=== PATIENT | female | born 1955 | race Hispanic/Latino ===

== ENCOUNTER 2017-10-23 07:10 | Day surgery (SDC) | payer OTHER ==
[~2017-10-23 07:10] MED LIST: TETRACAINE 0.5% OD PRN
--- NOTE | 2017-10-23 08:47 | Anesthesia Consultation ---
Anesthesia Consult and Med Hx Date of service: 10/23/17 - Airway Anesthetic Teeth Evaluation: Dentures ROM Head & Neck: Adequate Mental/Hyoid Distance: Adequate Mallampati Class: Class II Intubation Access Assessment: Probably Good - Pulmonary Exam CTA: Yes - Cardiac Exam Cardiac Exam: RRR - Pre-Operative Health Status ASA Pre-Surgery Classification: ASA2 Proposed Anesthetic Plan: MAC - Central Nervous System Hx Psychiatric Problems: Yes - Endocrine Hx Hyperthyroidism: Yes (GRAVES DISEASE) - Other Systems Hx Alcohol Use: No Hx Substance Use: No Hx Cancer: No Hx Obesity: Yes
--- NOTE | 2017-10-23 08:47 | Anesthesia Day of Surgery ---
Anesthesia Day of Surgery - Day of Surgery Patient Examined: Yes Patient H&P Reviewed: Yes Patient is NPO: Yes
[2017-10-23] MEDS: AK-Dilate OD SCH ×3 (09:00→09:10)
[2017-10-23] MEDS: VIGAMOX OD SCH ×3 (09:00→09:10)
[2017-10-23] MEDS: MYDRIACYL OD SCH ×3 (09:00→09:10)
[2017-10-23] MEDS ORDERED: TYLENOL PO NR (09:34)
[2017-10-23] MEDS ORDERED: VERSED ONE (10:45)
[2017-10-23] MEDS ORDERED: SUBLIMAZE ONE (10:45)
[2017-10-23] MEDS ORDERED: NACL 0.9% 1000 ML 1,000 ML ONE (11:03)
[2017-10-23] MEDS ORDERED: ROBINUL ONE (11:03)
--- NOTE | 2017-10-23 11:08 | Operative Report ---
Operative Report Operative Report: PATIENT'S NAME: DATE OF : DATE OF SURGERY: 10/23/2017 PREOPERATIVE DIAGNOSIS: Cataract right eye POSTOPERATIVE DIAGNOSIS: Same OPERATIVE PROCEDURE: Phacoemulsification with intraocular lens implantation, right eye SURGEON: Savannah Zavala M.D. MASTER CHEF SURGEON: Tanesha Lens: AO60 14.0 D ANESTHESIA: Monitored anesthesia care in combination with topical and intracameral anesthesia because of the established specific risk of reflux, arrhythmias, or anxiety attacks associated with ocular manipulation, as well as the difficulty of the welfare adviser to manage such potentially catastrophic events while simultaneously attempting to complete the surgical procedure and was deemed necessary for the patient's safety to have an Ob Gyn Physician Assistant present during the procedure whenever possible. An Ob Gyn Physician Assistant was utilized to regulate the intravenous sedation of the patient so the patient was cooperative yet not asleep in order for the patient to successfully maintain fixation of the eye on the operating light of the microscope. COMPLICATIONS: o surgical complications No blood loss. ALLERGIES: Aspirin penicillin PROGNOSIS: Excellent INDICATIONS FOR SURGERY: The patient is undergoing surgery in the hopes of eliminating or improving these visual difficulties. PROCEDURE: After arriving at the surgery center, the patient was given topical anesthetic and dilating drops, as noted in the record. The patient was then taken into the operating room and given more anesthetic drops. The eyelids , lashes, and lid margins were scrubbed with Betadine solution, and the patient was draped. The Nurse Ob Gyn Physician Assistant administered IV sedation and monitored the patient during the procedure. The eye was then fixated with a 0.12, and a stab incision was made in the peripheral clear cornea into the anterior chamber. This was made on my left side. Viscoelastic was next used to fill the anterior chamber. The eye was once again fixated with the 0.12 forceps and a keratome was used make an incision in clear cornea peripherally on my right hand side temporally. The capsule forceps were used to open the central anterior capsule and then make a continuous round capsulotomy. Hydrodissection was carried out utilizing a cannula and balanced salt solution to delineate the cortical material from the capsule and the nucleus from the cortical material. The phaco tip was introduced into the eye and used to remove the anterior cortical material in the area of the capsulotomy. Then the phaco tip was buried into the nucleus, and a chopping instrument was introduced into the eye and used to provide countertraction in the nucleus between this instrument and the phaco tip fracturing the nucleus. This procedure was repeated multiple times, providing multiple small segments of the lens, and then the phaco tip was used to remove each of these segments. An I/A tip was then used to remove the remaining cortex. The anterior chamber was refilled with viscoelastic. An one-piece, acrylic intraocular lens was then placed into an inserting cartridge. The tip of the inserting cartridge was introduced into the keratome incision and into the anterior chamber. The implant was gently advanced through the cartridge and into the eye, where it unfolded, and both haptics were placed in the capsular bag, where it centered nicely and appeared to be well fixated. After placement of the intraocular lens, the I~and~A handpiece was placed back into the eye and used to remove the viscoelastic, including viscoelastic that was behind the optic of the intraocular lens. The anterior chamber was then filled with balanced salt solution, and hydration of the wound was used to cause swelling of the wound and more appropriate watertight closure. When the wound was found to be firm, the patient was asked to comment on how bright the light was. If there was no light perception at all or if the light was substantially dimmer than during the rest of the surgery, the amount of fluid in the eye was decompressed to lower the intraocular pressure until the patient could see the bright light again. This was done to avoid any damage or decreased blood flow to the optic nerve. MEDICATIONS APPLIED AT END OF SURGERY: One drop of Pred Forte and Vigamox The patient was given a shield to wear at night and was instructed not to rub or push on the eye. DISCHARGE SUMMARY: The patient was released in stable condition. The patient and those with the patient were given a written sheet of postoperative instructions and counseling on any abnormal laboratory studies. The patient is to see us tomorrow for follow-up in the office and is to call immediately for any difficulties. Savannah Zavala M.D. Date
--- NOTE | 2017-10-23 11:09 | Short Stay Summary ---
Short Stay Documentation Date of service: 10/23/17 - History H&P: obtained from office - Allergies and Medications Current Medications: Allergies aspirin Allergy (Verified 10/22/17 14:14) CONTRAINDICATED Penicillins Allergy (Verified 10/22/17 14:14) Unknown A TEENAGER Home Medications Medication Instructions Recorded Confirmed Last Taken Type Cholecalciferol (Vitamin D3) 5,000 unit PO DAILY 10/22/17 10/22/17 10/22/17 History [Vitamin D3] Docusate Sodium [Dok] 100 mg PO DAILY 10/22/17 10/22/17 10/22/17 History Levothyroxine [Synthroid] 125 mcg PO QAM 10/22/17 10/22/17 10/22/17 History [place] Carbonate [Eskalith] 300 mg PO DAILY 10/22/17 10/22/17 10/22/17 History Loratadine 10 mg PO DAILY 10/22/17 10/22/17 10/22/17 History Oxybutynin [Ditropan] 5 mg PO BID 10/22/17 10/22/17 10/22/17 History Pramipexole Di-HCl [Pramipexole 0.125 mg PO QHS 10/22/17 10/22/17 10/22/17 History Dihydrochloride] Propranolol [Inderal] 10 mg PO DAILY 10/22/17 10/22/17 10/22/17 History Ranitidine HCl [Acid Control] 150 mg PO BID 10/22/17 10/22/17 10/22/17 History Trazodone HCl 150 mg PO QHS 10/22/17 10/22/17 10/22/17 History Trifluoperazine HCl 5 mg PO QHS 10/22/17 10/22/17 10/22/17 History Active Medications Acetazolamide (Diamox) 500 mg PO BID ONE Stop: 10/23/17 11:07 Moxifloxacin HCl (Vigamox) 1 drops OD Q5MIN [facility] Stop: 10/25/17 06:01 Last Admin: 10/23/17 09:10 Dose: 1 drops Phenylephrine HCl (Ak-Dilate) 1 drops OD Q5MIN [facility] Stop: 10/25/17 06:01 Last Admin: 10/23/17 09:10 Dose: 1 drops Prednisolone Acetate (Pred Forte 1%) 1 drops OD QID [facility] Tetracaine HCl (Tetracaine 0.5%) 1 drops OD Q5M PRN PRN Reason: Analgesia Last Admin: 10/23/17 09:00 Dose: 1 drops Tropicamide (Mydriacyl) 1 drops OD Q5MIN [facility] Stop: 10/25/17 06:01 Last Admin: 10/23/17 09:10 Dose: 1 drops - Brief post op/procedure progress note Date of procedure: 10/23/17 Pre-op diagnosis: right cataract Post-op diagnosis: same Procedure: Phacoemulsification with intraocular lens insertion right eye Anesthesia: MAC, local Surgeon: GOLD CHAVEZ Estimated blood loss: none Pathology: none Condition: stable - Disposition Condition at discharge: Good - Discharge Diagnoses (1) Cataract Status: Acute Qualifiers: Cataract type: age-related Age-related cataract type: nuclear Laterality : right Qualified Code(s): H25.11 - Age-related nuclear cataract, right eye Short Stay Discharge Plan Follow up with: LINA GARZA MD [Primary Care Provider] - 7 Days
[2017-10-23] MEDS ORDERED: PRED FORTE 1% OD SCH (11:30)
[2017-10-23] MEDS ORDERED: DIAMOX PO ONE (12:00)
[2017-10-23 12:20] VITALS: BP 107/67
== END 2017-10-23 07:11 | disposition home or self-care (01) ==
LOC: OR 07:10
DX: H26.9 Unspecified cataract (principal); E05.00 Thyrotoxicosis with diffuse goiter without thyrotoxic crisis or storm; E66.9 Obesity, unspecified; F41.9 Anxiety disorder, unspecified; Z88.0 Allergy status to penicillin; Z88.6 Allergy status to analgesic agent
CPT/HCPCS: 66984; J2250; J3010; J7030; V2632

== ENCOUNTER 2021-03-19 21:36 | Inpatient (IN) | payer MEDICARE, OTHER ==
--- NOTE | 2021-03-19 22:53 | Emergency Department Report ---
ED Psych HPI - General Stated Complaint: MH EVAL Time Seen by Provider: 03/19/21 22:35 Source: EMS - History of Present Illness Initial Comments: Patient is 65-year-old female, unknown past medical history. Patient brought to the emergency room via EMS for mental health evaluation and altered mental status. EMS stated that patient was found naked in the street. Upon arrival to the ER patient is calm however she refused to talk initially and then started to answer some questions. Patient is disoriented in place, however she knows that this is March. Patient is able to give her Social Security number and her current address but she stated that she does not have a phone number. She stated that her daughter name is Pauline and her son is Zack. Patient denied any suicidal or homicidal ideation. MD Complaint: altered mental status -: unknown Associated Psychiatric Symptoms: racing thoughts, delusions Quality: constant Associated Symptoms: confusion - Related Data Home Medications Medication Instructions Recorded Confirmed Last Taken Cholecalciferol (Vitamin D3) 5,000 unit PO DAILY 10/22/17 10/22/17 10/22/17 [Vitamin D3] Docusate Sodium [Dok] 100 mg PO DAILY 10/22/17 10/22/17 10/22/17 Levothyroxine [Synthroid] 125 mcg PO QAM 10/22/17 10/22/17 10/22/17 [place] Carbonate [Eskalith] 300 mg PO DAILY 10/22/17 10/22/17 10/22/17 Loratadine 10 mg PO DAILY 10/22/17 10/22/17 10/22/17 Oxybutynin [Ditropan] 5 mg PO BID 10/22/17 10/22/17 10/22/17 Pramipexole Di-HCl [Pramipexole 0.125 mg PO QHS 10/22/17 10/22/17 10/22/17 Dihydrochloride] Trazodone HCl 150 mg PO QHS 10/22/17 10/22/17 10/22/17 Trifluoperazine HCl 5 mg PO QHS 10/22/17 10/22/17 10/22/17 propranoloL [Inderal] 10 mg PO DAILY 10/22/17 10/22/17 10/22/17 raNITIdine HCl [Acid Control] 150 mg PO BID 10/22/17 10/22/17 10/22/17 Allergies Allergy/AdvReac Type Severity Reaction Status Date / Time aspirin Allergy CONTRAINDIC Verified 10/22/17 14:14 ATED Penicillins Allergy Unknown Verified 10/22/17 14:14 ED Review of Systems ROS: Stated complaint: JOHN FOLEY Other details as noted in HPI Comment: All other systems reviewed and negative Constitutional: denies: chills, fever Respiratory: denies: cough, shortness of breath, SOB with exertion, SOB at rest Cardiovascular: denies: chest pain, palpitations Gastrointestinal: denies: abdominal pain, nausea, vomiting Musculoskeletal: denies: back pain Neurological: confusion. denies: headache, weakness, numbness, paresthesias, abnormal gait ED Past Medical Hx - Past Medical History Hx Arthritis: Yes Hx HIV: No - Social History Smoking Status: Never Smoker - Medications Home Medications: Home Medications Medication Instructions Recorded Confirmed Last Taken Type Cholecalciferol (Vitamin D3) 5,000 unit PO DAILY 10/22/17 10/22/17 10/22/17 History [Vitamin D3] Docusate Sodium [Dok] 100 mg PO DAILY 10/22/17 10/22/17 10/22/17 History Levothyroxine [Synthroid] 125 mcg PO QAM 10/22/17 10/22/17 10/22/17 History [place] Carbonate [Eskalith] 300 mg PO DAILY 10/22/17 10/22/17 10/22/17 History Loratadine 10 mg PO DAILY 10/22/17 10/22/17 10/22/17 History Oxybutynin [Ditropan] 5 mg PO BID 10/22/17 10/22/17 10/22/17 History Pramipexole Di-HCl [Pramipexole 0.125 mg PO QHS 10/22/17 10/22/17 10/22/17 History Dihydrochloride] Trazodone HCl 150 mg PO QHS 10/22/17 10/22/17 10/22/17 History Trifluoperazine HCl 5 mg PO QHS 10/22/17 10/22/17 10/22/17 History propranoloL [Inderal] 10 mg PO DAILY 10/22/17 10/22/17 10/22/17 History raNITIdine HCl [Acid Control] 150 mg PO BID 10/22/17 10/22/17 10/22/17 History ED Physical Exam - General General appearance: alert, in no apparent distress - Head Head exam: Present: atraumatic, normocephalic, normal inspection - Eye Eye exam: Present: normal appearance, PERRL - ENT ENT exam: Present: normal exam, normal orophraynx, mucous membranes moist - Neck Neck exam: Present: normal inspection, full ROM. Absent: tenderness, meningismus - Respiratory Respiratory exam: Present: normal lung sounds bilaterally - Cardiovascular Cardiovascular Exam: Present: regular rate, normal rhythm, normal heart sounds - GI/Abdominal GI/Abdominal exam: Present: soft, normal bowel sounds. Absent: distended, tenderness, guarding, rebound, rigid, mass, bruit, pulsatile mass, hernia - Extremities Exam Extremities exam: Present: normal inspection, full ROM, normal capillary refill. Absent: tenderness - Back Exam Back exam: Present: normal inspection, full ROM. Absent: CVA tenderness (R), CVA tenderness (L) - Neurological Exam Neurological exam: Present: alert, altered, CN II-XII intact, normal gait, reflexes normal. Absent: motor sensory deficit - Psychiatric Psychiatric exam: Present: flat affect. Absent: homicidal ideation, suicidal ideation - Skin Skin exam: Present: warm, intact, normal color ED Course Vital Signs 03/19/21 03/19/21 03/20/21 22:44 23:26 08:34 Temperature 97.8 F 97.5 F L Pulse Rate 99 H 78 Respiratory 18 18 Rate Blood Pressure 139/79 Blood Pressure 139/79 149/71 [Left] O2 Sat by Pulse 98 98 99 Oximetry 03/20/21 03/21/21 03/21/21 19:42 06:30 10:04 Temperature 97.3 F L Pulse Rate 90 Respiratory 18 Rate Blood Pressure Blood Pressure 120/51 [Left] O2 Sat by Pulse 99 96 100 Oximetry 03/21/21 03/21/21 03/22/21 10:18 20:00 01:00 Temperature 98.0 F 98.0 F 98.2 F Pulse Rate 64 99 H 89 Respiratory 16 18 18 Rate Blood Pressure Blood Pressure 136/45 129/73 126/60 [Left] O2 Sat by Pulse 99 99 98 Oximetry 03/22/21 03/22/21 08:41 09:00 Temperature 97.9 F Pulse Rate 86 Respiratory 18 Rate Blood Pressure Blood Pressure 121/69 [Left] O2 Sat by Pulse 98 100 Oximetry ED Medical Decision Making - Lab Data Result diagrams: 03/21/21 09:34 03/22/21 04:59 Critical care attestation.: If time is entered above; I have spent that time in minutes in the direct care o f this critically ill patient, excluding procedure time. ED Disposition Clinical Impression: Hypokalemia, Transaminitis, Dehydration, Psychosis Disposition: DC-09 OP ADMIT IP TO THIS HOSP Is pt being admited?: Yes Condition: Stable
[2021-03-19 23:55] LABS: Basophils % (Auto) 0.4 % (0.0-1.8); Eosinophils % (Auto) 0.2 % (0.0-4.3); Hematocrit 42.3 % (30.3-42.9); Lymphocytes # (Auto) 1.1 K/mm3 (1.2-5.4); Mean Corpuscular HGB Conc 33 % (30-34); Mean Corpuscular Volume 101 fl (79-97); Monocytes # (Auto) 0.8 K/mm3 (0.0-0.8); Monocytes % (Auto) 6.5 % (0.0-7.3); Platelet Count 257 K/mm3 (140-440); Red Cell Distribution Width 14.3 % (13.2-15.2)
[2021-03-20 00:15] LABS: Albumin 4.4 g/dL (3.9-5); Bilirubin,Direct 0.3 mg/dL (0-0.2); Calcium 10.3 mg/dL (8.4-10.2)
[2021-03-20] MEDS ORDERED: SODIUM CHLORIDE 0.9% 1000 ML 1,000 ML IV ONE (00:18)
--- NOTE | 2021-03-20 00:39 | Cat Scan Report ---
CT HEAD WITHOUT CONTRAST INDICATION / CLINICAL INFORMATION: Altered Mental Status. TECHNIQUE: All CT scans at this location are performed using CT dose reduction for ALARA by means of automated exposure control. COMPARISON: None available. FINDINGS: HEMORRHAGE: None. EXTRA-AXIAL SPACES: Normal in size and morphology for the patient's age. VENTRICULAR SYSTEM: Normal in size and morphology for the patient's age. CEREBRAL PARENCHYMA: No significant abnormality. No acute territorial infarct. MIDLINE SHIFT / HERNIATION: None. CEREBELLUM / BRAINSTEM: No significant abnormality. ORBITS: Calcification of the left lens. SOFT TISSUES: No significant abnormality. SKULL: No significant abnormality. PARANASAL SINUSES / MASTOID AIR CELLS: Normal as visualized. ADDITIONAL FINDINGS: None. IMPRESSION: 1. No acute intracranial abnormality. Signer Name: Gilles Simms MD Signed: 03/20/2021 12:34 AM Workstation Name: [id number]
--- NOTE | 2021-03-20 10:36 | Consultation ---
History of Present Illness - Reason for Consult Consult date: 03/20/21 Reason for consult: psychosis - History of Present Psychiatric Illness Per ER Note: Patient is 65-year-old female, unknown past medical history. Patient brought to the emergency room via EMS for mental health evaluation and altered mental status. EMS stated that patient was found naked in the street. Upon arrival to the ER patient is calm however she refused to talk initially and then started to answer some questions. Patient is disoriented in place, however she knows that this is March. Patient is able to give her Social Security number and her current address but she stated that she does not have a phone number. She stated that her daughter name is Pauline and her son is Zack. Patient denied any suicidal or homicidal ideation. Tata Belle is a 65y/o female patient who was brought in by EMS after being found naked in the streets. During my evaluation of the patient she is acutely psychotic. She is delusional. She is disorganized. She is hollering out and marly aquino sounds with her mouth. The patient is leaving her room and roaming in rooms with others. The nurse states she has been lying on the floor. The patient initially just stares at me and would not respond. She then starts talking loudly and yelling. She says "I feel a whole lot better" in a loud voice. She then starts screaming "I got her, Pauline, I got her." She raises her leg up and places it down as if she's holding something down. She says "I got her" again. The patient then starts saying "wooooo woooooo." I asked the patient if she knew why she came to the hospital, she replies "they were looking for a house." Past psychiatric history Unable to assess PAST MEDICAL HISTORY: unable to assess Family Psychiatric History: None reported or documented SOCIAL HISTORY Unable to assess REVIEW OF SYSTEMS Unable to assess MENTAL STATUS EXAMINATION Unable to assess Assessment and Plan (1)Acute Psychosis Current Visit: Yes Status: Acute Treatment Plan 1013 Geodon 10mg IM q4h prn agitation Risperidone 0.25mg po BID Vistaril 25mg po BID Trazedone 50mg po qhs Sitter: Per primary Medical: Per primary Disposition: Recommend acute psychiatric inpatient treatment Will follow. Thanks Case staffed with Dr. Eugene Medications and Allergies Allergies Allergy/AdvReac Type Severity Reaction Status Date / Time aspirin Allergy CONTRAINDIC Verified 10/22/17 14:14 ATED Penicillins Allergy Unknown Verified 10/22/17 14:14 Home Medications Medication Instructions Recorded Confirmed Last Taken Type Cholecalciferol (Vitamin D3) 5,000 unit PO DAILY 10/22/17 10/22/17 10/22/17 History [Vitamin D3] Docusate Sodium [Dok] 100 mg PO DAILY 10/22/17 10/22/17 10/22/17 History Levothyroxine [Synthroid] 125 mcg PO QAM 10/22/17 10/22/17 10/22/17 History [place] Carbonate [Eskalith] 300 mg PO DAILY 10/22/17 10/22/17 10/22/17 History Loratadine 10 mg PO DAILY 10/22/17 10/22/17 10/22/17 History Oxybutynin [Ditropan] 5 mg PO BID 10/22/17 10/22/17 10/22/17 History Pramipexole Di-HCl [Pramipexole 0.125 mg PO QHS 10/22/17 10/22/17 10/22/17 History Dihydrochloride] Trazodone HCl 150 mg PO QHS 10/22/17 10/22/17 10/22/17 History Trifluoperazine HCl 5 mg PO QHS 10/22/17 10/22/17 10/22/17 History propranoloL [Inderal] 10 mg PO DAILY 10/22/17 10/22/17 10/22/17 History raNITIdine HCl [Acid Control] 150 mg PO BID 10/22/17 10/22/17 10/22/17 History Mental Status Exam - Vital signs Last Vital Signs Temp 97.5 F L 03/20/21 08:34 Pulse 78 03/20/21 08:34 Resp 18 03/20/21 08:34 BP 149/71 03/20/21 08:34 Pulse Ox 99 03/20/21 08:34 Results Result Diagrams: 03/19/21 23:39 03/19/21 23:39 Abnormal lab results 03/19/21 03/19/21 03/19/21 Range/Units 23:39 23:39 23:39 WBC 11.8 H (4.5-11.0) K/mm3 MCV 101 H (79-97) fl MCH 33 H (28-32) pg Lymph % (Auto) 9.0 L (13.4-35.0) % Lymph # (Auto) 1.1 L (1.2-5.4) K/mm3 Seg Neutrophils % 83.9 H (40.0-70.0) % Seg Neutrophils # 9.9 H (1.8-7.7) K/mm3 Sodium 148 H (137-145) mmol/L Chloride 113.0 H (98-107) mmol/L Carbon Dioxide 17 L (22-30) mmol/L BUN 30 H (7-17) mg/dL Creatinine 1.4 H (0.6-1.2) mg/dL Calcium 10.3 H (8.4-10.2) mg/dL Direct Bilirubin 0.3 H (0-0.2) mg/dL AST 103 H (5-40) units/L ALT 78 H (7-56) units/L Total Creatine Kinase (30-135) units/L Total Protein 8.9 H (6.3-8.2) g/dL Salicylates < 0.3 L (2.8-20.0) mg/dL Acetaminophen (10.0-30.0) ug/mL 03/19/21 03/19/21 Range/Units 23:39 23:39 WBC (4.5-11.0) K/mm3 MCV (79-97) fl MCH (28-32) pg Lymph % (Auto) (13.4-35.0) % Lymph # (Auto) (1.2-5.4) K/mm3 Seg Neutrophils % (40.0-70.0) % Seg Neutrophils # (1.8-7.7) K/mm3 Sodium (137-145) mmol/L Chloride (98-107) mmol/L Carbon Dioxide (22-30) mmol/L BUN (7-17) mg/dL Creatinine (0.6-1.2) mg/dL Calcium (8.4-10.2) mg/dL Direct Bilirubin (0-0.2) mg/dL AST (5-40) units/L ALT (7-56) units/L Total Creatine Kinase 1831 H (30-135) units/L Total Protein (6.3-8.2) g/dL Salicylates (2.8-20.0) mg/dL Acetaminophen 5.0 L (10.0-30.0) ug/mL All other labs normal.
[2021-03-20] MEDS: ZIPRASIDONE MESYLATE 20 MG VIAL IM PRN (12:25)
[2021-03-20] MEDS: hydrOXYzine PAMOATE 25 MG CAP PO SCH (13:06)
[2021-03-20] MEDS: risperiDONE 0.25 MG TAB PO SCH (13:06)
[2021-03-20 19:11] LABS: Basophils # (Auto) 0.1 K/mm3 (0.0-0.1); Basophils % (Auto) 0.8 % (0.0-1.8); Eosinophils # (Auto) 0.2 K/mm3 (0.0-0.4); Eosinophils % (Auto) 1.5 % (0.0-4.3); Hematocrit 39.5 % (30.3-42.9); Hemoglobin 13.2 gm/dl (10.1-14.3); Lymphocytes # (Auto) 2.4 K/mm3 (1.2-5.4); Lymphocytes % (Auto) 23.1 % (13.4-35.0); Mean Corpuscular HGB Conc 33 % (30-34); Mean Corpuscular Volume 100 fl (79-97); Monocytes # (Auto) 0.9 K/mm3 (0.0-0.8); Monocytes % (Auto) 8.9 % (0.0-7.3); Platelet Count 258 K/mm3 (140-440); Red Blood Count 3.96 M/mm3 (3.65-5.03); Red Cell Distribution Width 13.9 % (13.2-15.2)
[2021-03-20 19:29] LABS: Albumin 4.6 g/dL (3.9-5); Calcium 9.9 mg/dL (8.4-10.2)
[2021-03-21] MEDS: hydrOXYzine PAMOATE 25 MG CAP PO SCH ×3 (01:43→23:15)
[2021-03-21] MEDS: risperiDONE 0.25 MG TAB PO SCH ×3 (01:43→23:20)
[2021-03-21] MEDS: traZODone 50 MG TAB PO SCH ×2 (01:43→23:20)
[2021-03-21] MEDS: ZIPRASIDONE MESYLATE 20 MG VIAL IM PRN (01:44)
[2021-03-21 10:00] LABS: Basophils # (Auto) 0.1 K/mm3 (0.0-0.1); Basophils % (Auto) 0.9 % (0.0-1.8); Eosinophils % (Auto) 0.4 % (0.0-4.3); Hemoglobin 13.3 gm/dl (10.1-14.3); Lymphocytes # (Auto) 1.8 K/mm3 (1.2-5.4); Lymphocytes % (Auto) 19.7 % (13.4-35.0); Mean Corpuscular HGB Conc 34 % (30-34); Mean Corpuscular Volume 100 fl (79-97); Monocytes # (Auto) 0.6 K/mm3 (0.0-0.8); Monocytes % (Auto) 5.9 % (0.0-7.3); Platelet Count 248 K/mm3 (140-440); Red Blood Count 3.91 M/mm3 (3.65-5.03); Red Cell Distribution Width 13.9 % (13.2-15.2)
--- NOTE | 2021-03-21 10:03 | Progress Note ---
Subjective - Reason for Consult Consult date: 03/21/21 Reason for consult: psychosis - Chief Complaint Chief complaint: The patient was seen today. She is still acutely psychotic. She is lying on the floor and scooting. She is singing out loud. She says "I'm doing fine, just singing to the Lord." The patient has poor insight and is unable to give any information. When I ask if she knew where she was she says [facility]." I ask the patient if she knew what day it was, she shouts "It's my Birthday." The patient then says "my birthday is 1955." She says, "God is good." She then starts back singing. MENTAL STATUS EXAMINATION Unable to assess Assessment and Plan (1)Acute Psychosis Current Visit: Yes Status: Acute Treatment Plan 1013 Geodon 10mg IM q4h prn agitation Increased Risperidone 0.5mg po BID Start Depakote DR 125mg po BID Sitter: Per primary Medical: Per primary Disposition: Recommend acute psychiatric inpatient treatment Will follow. Thanks Case staffed with Dr. Eugene Mental Status Exam - Vital signs Last Vital Signs Temp 97.3 F L 03/21/21 06:30 Pulse 90 03/21/21 06:30 Resp 18 03/21/21 06:30 BP 120/51 03/21/21 06:30 Pulse Ox 96 03/21/21 06:30
[2021-03-21] MEDS ORDERED: LACTATED RINGERS 1,000 ML IV ONE (10:04)
[2021-03-21] MEDS ORDERED: risperiDONE 0.25 MG TAB ONE ×2 (10:08→10:12)
[2021-03-21 10:09] LABS: INR 1.04 (0.87-1.13)
[2021-03-21] MEDS: DIVALPROEX DR 125 MG TAB PO SCH ×3 (10:12→23:15)
[2021-03-21 10:21] LABS: Partial Thromboplastin Time 21.4 Sec. (24.2-36.6)
[2021-03-21 10:44] LABS: Albumin 4.4 g/dL (3.9-5); Bilirubin,Direct 0.2 mg/dL (0-0.2); Calcium 10.6 mg/dL (8.4-10.2)
[2021-03-21] MEDS ORDERED: POTASSIUM CHLORIDE ER 20 MEQ TAB PO ONE ×2 (10:48→17:53)
--- NOTE | 2021-03-21 11:14 | Event Note ---
Date: 03/21/21 This is a 65-year-old female with unknown past medical history who was brought in initially due to acute psychosis after being found running around naked outside. She was seen by my colleague who performed medical clearance work-up and labs revealed metabolic acidosis with CO2 of 17, creatinine of 1.4, BUN of 30, and slight elevation of LFTs as well as CK level of 1831. The patient was given 1 L of IV fluids and had repeat labs performed yesterday which revealed worsening metabolic acidosis, improved kidney function, and further increases in transaminases, AST > ALT. I saw the patient this morning and she was able to speak with me calmly. She denies any physical symptoms or complaints including chest pain, shortness of breath, abdominal pain, nausea, flank pain, back pain, dysuria, focal weakness, sensory changes, or any other complaints whatsoever. She has dry mucous membranes but has no abdominal tenderness, guarding, or rebound. Lungs are clear to auscultation. Heart sounds are normal. Patient's tachycardia has resolved. Per the mental health RN, the patient has been constantly pacing and talking to herself. Does not follow commands and is in seclusion due to constant moving/agitation. I spoke to the patient and she agreed to receive IV fluids. I have ordered 1 L of LR. I have ordered repeat labs for today. Repeat labs today reveal no new leukocytosis or anemia. The patient's metabolic acidosis has resolved and her CO2 level is now 26. Her kidney function is stable. Potassium is still low at 3.2, and I have ordered repletion. Her transaminases have increased slightly with AST of 245 from 214 yesterday and ALT of 152 from 129 yesterday. She has no elevated bilirubin or alk phos. Coags are normal. Repeat CK level has returned more elevated at 3922 consistent with rhabdomyolysis. Given this finding, the patient will be admitted to medicine for further work-up and/or management. Urinalysis/UDS are still pending because patient has refused to provide a sample, althrough she is urinating in the bathroom. At 11:20 AM, I spoke with Dr. Still, the on-call hospitalist regarding the case. He accepts patient for admission and will assume care.
[2021-03-21] MEDS ORDERED: ALBUTEROL 2.5 MG/3 ML NEBU IH PRN (13:13)
[2021-03-21] MEDS ORDERED: ACETAMINOPHEN 325 MG TAB PO PRN (13:13)
[2021-03-21] MEDS ORDERED: oxyCODONE /ACETAMINOPHEN 5-325MG TAB PO PRN (13:13)
[2021-03-21] MEDS ORDERED: HYDROmorphone 1 MG/1 ML INJ IV PRN (13:13)
[2021-03-21] MEDS ORDERED: ONDANSETRON 4 MG/2 ML INJ IV PRN (13:13)
--- NOTE | 2021-03-21 13:13 | History and Physical Report ---
History of Present Illness Chief complaint: Confused History of present illness: 65 YO Female with Hypothyroidism, GERD, HTN, Seasonal Allergies presents to ED for evaluation. Patient has diminished cognition and is unable to provide history at the time my evaluation. Patient history taken from each to my staff, ED staff. As per staff the patient was transported to [facility] via EMS after being found naked in the street. Patient seen and evaluated in the emergency department. All lab and imaging studies reviewed. [address] Patient found to have rhabdomyolysis. Patient is unable to tolerate oral rehydration therapy and found to have resultant electrolyte abnormality. Patient admitted to medical floor and treated with IV fluid resuscitation therapy, IV bicarbonate therapy and supportive care. No reports of fever, chills, chest pain, palpitation, productive cough, skin rash, recent ill contacts, known exposure to COVID-19. No prior admission for review. All medication listed at time of admission has been reconciled. Advanced care planning conducted in ED. Patient has diminished cognition at the time my evaluation but has a positive gag reflex and is able to protect her airway without difficulty. Past History Past Medical History: GERD, hypertension, hypothyroidism, other (See HPI) Past Surgical History: No surgical history, Other (Reviewed) Social history: single. denies: smoking, alcohol abuse, prescription drug abuse Family history: hypertension Medications and Allergies Allergies Allergy/AdvReac Type Severity Reaction Status Date / Time aspirin Allergy CONTRAINDIC Verified 10/22/17 14:14 ATED Penicillins Allergy Unknown Verified 10/22/17 14:14 Home Medications Medication Instructions Recorded Confirmed Last Taken Type Cholecalciferol (Vitamin D3) 5,000 unit PO DAILY 10/22/17 10/22/17 10/22/17 History [Vitamin D3] Docusate Sodium [Dok] 100 mg PO DAILY 10/22/17 10/22/17 10/22/17 History Levothyroxine [Synthroid] 125 mcg PO QAM 10/22/17 10/22/17 10/22/17 History [place] Carbonate [Eskalith] 300 mg PO DAILY 10/22/17 10/22/17 10/22/17 History Loratadine 10 mg PO DAILY 10/22/17 10/22/17 10/22/17 History Oxybutynin [Ditropan] 5 mg PO BID 10/22/17 10/22/17 10/22/17 History Pramipexole Di-HCl [Pramipexole 0.125 mg PO QHS 10/22/17 10/22/17 10/22/17 History Dihydrochloride] Trazodone HCl 150 mg PO QHS 10/22/17 10/22/17 10/22/17 History Trifluoperazine HCl 5 mg PO QHS 10/22/17 10/22/17 10/22/17 History propranoloL [Inderal] 10 mg PO DAILY 10/22/17 10/22/17 10/22/17 History raNITIdine HCl [Acid Control] 150 mg PO BID 10/22/17 10/22/17 10/22/17 History Active Meds: Active Medications Divalproex Sodium (Divalproex Dr 125 Mg Tab) 125 mg PO BID [facility] Last Admin: 03/21/21 10:13 Dose: 125 mg Documented by: Hydroxyzine Pamoate (Hydroxyzine Pamoate 25 Mg Cap) 25 mg PO BID [facility] Last Admin: 03/21/21 10:11 Dose: 25 mg Documented by: Risperidone (Risperidone 0.25 Mg Tab) 0.5 mg PO BID [facility] Last Admin: 03/21/21 10:12 Dose: 0.5 mg Documented by: Trazodone HCl (Trazodone 50 Mg Tab) 50 mg PO QHS [facility] Last Admin: 03/21/21 01:43 Dose: 50 mg Documented by: Ziprasidone (Ziprasidone Mesylate 20 Mg Vial) 10 mg IM Q4H PRN PRN Reason: Agitation Last Admin: 03/21/21 01:44 Dose: 10 mg Documented by: Review of Systems ROS unobtainable: due to mental status Exam - Constitutional Vitals: Temp Pulse Resp BP Pulse Ox 98.0 F 64 16 136/45 99 03/21/21 10:18 03/21/21 10:18 03/21/21 10:18 03/21/21 10:18 03/21/21 10:18 General appearance: Present: mild distress, cachectic, disheveled - EENT Eyes: Present: PERRL ENT: hearing intact, clear oral mucosa - Neck Neck: Present: supple, normal ROM - Respiratory Respiratory effort: normal Respiratory: bilateral: CTA - Cardiovascular Heart Sounds: Present: S1 & S2. Absent: rub, click - Extremities Extremities: pulses symmetrical, No edema Peripheral Pulses: within normal limits - Abdominal General gastrointestinal: Present: soft, non-tender, non-distended, normal bowel sounds Female genitourinary: Present: normal - Integumentary Integumentary: Present: clear, warm, dry - Musculoskeletal Musculoskeletal: gait normal, strength equal bilaterally - Psychiatric Psychiatric: appropriate mood/affect, intact judgment & insight - Neurologic Neurologic: CNII-XII intact, moves all extremities Results - Labs CBC & Chem 7: 03/21/21 09:34 03/21/21 09:34 Labs: Abnormal lab results 03/20/21 03/20/21 03/21/21 Range/Units 18:49 18:49 09:34 MCV 100 H 100 H (79-97) fl MCH 33 H 34 H (28-32) pg Cottle % (Auto) 8.9 H (0.0-7.3) % [place]le # (Auto) 0.9 H (0.0-0.8) K/mm3 Seg Neutrophils % 73.1 H (40.0-70.0) % APTT (24.2-36.6) Sec. Sodium (137-145) mmol/L Potassium (3.6-5.0) mmol/L Chloride 114.4 H (98-107) mmol/L Carbon Dioxide 15 L (22-30) mmol/L BUN 28 H (7-17) mg/dL Glucose 117 H (65-100) mg/dL Calcium (8.4-10.2) mg/dL AST 214 H (5-40) units/L ALT 129 H (7-56) units/L Ammonia (25-60) umol/L Total Creatine Kinase (30-135) units/L Total Protein 8.5 H (6.3-8.2) g/dL Lipase (13-60) units/L 03/21/21 03/21/21 03/21/21 Range/Units 09:34 09:34 11:22 MCV (79-97) fl MCH (28-32) pg Cottle % (Auto) (0.0-7.3) % Cottle # (Auto) (0.0-0.8) K/mm3 Seg Neutrophils % (40.0-70.0) % APTT 21.4 L (24.2-36.6) Sec. Sodium 146 H (137-145) mmol/L Potassium 3.2 L (3.6-5.0) mmol/L Chloride 110.5 H (98-107) mmol/L Carbon Dioxide (22-30) mmol/L BUN 21 H (7-17) mg/dL Glucose 115 H (65-100) mg/dL Calcium 10.6 H (8.4-10.2) mg/dL AST 245 H (5-40) units/L ALT 152 H (7-56) units/L Ammonia 15.0 L (25-60) umol/L Total Creatine Kinase 3922 H (30-135) units/L Total Protein 8.5 H (6.3-8.2) g/dL Lipase 11 L (13-60) units/L Assessment and Plan - Patient Problems (1) Rhabdomyolysis Current Visit: Yes Status: Acute Qualifiers: Encounter type: initial encounter Plan to address problem: CK level, CMP, IV fluid resuscitation therapy, monitor urine output every shift, IV bicarbonate therapy, repeat BMP in a.m., repeat CK in a.m. (2) Psychosis Current Visit: Yes Status: Acute Plan to address problem: Mental health team consulted, [address] (3) Transaminitis Current Visit: Yes Status: Acute Plan to address problem: Repeat LFT in a.m., supportive care, IV fluid resuscitation therapy. (4) DVT prophylaxis Current Visit: Yes Status: Acute Plan to address problem: SCD to bilateral lower extremities while in bed, patient is ambulatory (5) Advance care planning Current Visit: Yes Status: Acute Plan to address problem: Disease education conducted, care plan discussed, diagnosis discussed, prognosis discussed, patient is full code, +30 minutes.
[2021-03-21] MEDS ORDERED: SODIUM CHLORIDE 0.45% IV SCH (14:00)
[2021-03-21] MEDS ORDERED: SODIUM CHLORIDE 0.45% 1000 ML 1,000 ML IV SCH (14:00)
[2021-03-21] MEDS ORDERED: SODIUM BICARB 8.4% 50 MEQ/50 ML SYRINGE IV ONE (14:00)
[2021-03-21] MEDS: OXYBUTYNIN 5 MG TAB PO SCH ×2 (17:54→23:14)
[2021-03-21] MEDS: PRAMIPEXOLE 0.125 MG TAB PO SCH (23:16)
[2021-03-22] MEDS ORDERED: LEVOTHYROXINE 125 MCG TAB PO SCH (06:00)
[2021-03-22 06:43] LABS: Albumin 4.7 g/dL (3.9-5); Calcium 10.6 mg/dL (8.4-10.2)
--- NOTE | 2021-03-22 09:24 | Progress Note ---
Assessment and Plan Assessment and plan: (1) Rhabdomyolysis Current Visit: Yes Status: Acute Qualifiers: Encounter type: initial encounter Plan to address problem: CK level, CMP, IV fluid resuscitation therapy, monitor urine output every shift, IV bicarbonate therapy, repeat BMP in a.m., repeat CK in a.m. (2) Psychosis Current Visit: Yes Status: Acute Plan to address problem: Mental health team consulted, [address] (3) Transaminitis Current Visit: Yes Status: Acute Plan to address problem: Repeat LFT in a.m., supportive care, IV fluid resuscitation therapy. (4) DVT prophylaxis Current Visit: Yes Status: Acute Plan to address problem: SCD to bilateral lower extremities while in bed, patient is ambulatory 03/22/2021. Patient extremely agitated and combative and inability to obtain IV for IV fluid hydration. We are also unable to obtain lab values. Most recent CK was 3900. I discussed with psychiatry possibility of Geodon or some medication to combat the agitation. We will then start IV fluid hydration and follow-up CK levels. Anticipation is to discharge to inpatient psych when CK levels and laboratory values have been obtained History Interval history: No new issues overnight. However, patient extremely agitated and combative Hospitalist Physical - Constitutional Vitals: Temp Pulse Resp BP Pulse Ox 97.9 F 86 18 121/69 100 03/22/21 09:00 03/22/21 09:00 03/22/21 09:00 03/22/21 09:00 03/22/21 09:00 General appearance: Present: severe distress, cachectic, disheveled, other (Patient extremely agitated and combative) - EENT Eyes: Present: PERRL, EOM intact ENT: hearing intact, clear oral mucosa, dentition normal - Neck Neck: Present: supple, normal ROM - Respiratory Respiratory effort: normal Respiratory: bilateral: CTA - Cardiovascular Rhythm: regular Heart Sounds: Present: S1 & S2. Absent: gallop, rub - Extremities Extremities: no ischemia, No edema, Full ROM - Abdominal General gastrointestinal: soft, non-tender, non-distended, normal bowel sounds - Integumentary Integumentary: Present: clear, warm, dry - Neurologic Neurologic: CNII-XII intact, moves all extremities Results - Labs CBC & Chem 7: 03/21/21 09:34 03/22/21 04:59 Labs: Laboratory Last Values WBC 9.4 K/mm3 (4.5-11.0) 03/21/21 09:34 RBC 3.91 M/mm3 (3.65-5.03) 03/21/21 09:34 Hgb 13.3 gm/dl (10.1-14.3) 03/21/21 09:34 Hct 39.0 % (30.3-42.9) 03/21/21 09:34 MCV 100 fl (79-97) H 03/21/21 09:34 MCH 34 pg (28-32) H 03/21/21 09:34 MCHC 34 % (30-34) 03/21/21 09:34 RDW 13.9 % (13.2-15.2) 03/21/21 09:34 Plt Count 248 K/mm3 (140-440) 03/21/21 09:34 Lymph % (Auto) 19.7 % (13.4-35.0) 03/21/21 09:34 [place] % (Auto) 5.9 % (0.0-7.3) 03/21/21 09:34 Eos % (Auto) 0.4 % (0.0-4.3) 03/21/21 09:34 Baso % (Auto) 0.9 % (0.0-1.8) 03/21/21 09:34 Lymph # (Auto) 1.8 K/mm3 (1.2-5.4) 03/21/21 09:34 [place] # (Auto) 0.6 K/mm3 (0.0-0.8) 03/21/21 09:34 Eos # (Auto) 0.0 K/mm3 (0.0-0.4) 03/21/21 09:34 Baso # (Auto) 0.1 K/mm3 (0.0-0.1) 03/21/21 09:34 Seg Neutrophils % 73.1 % (40.0-70.0) H 03/21/21 09:34 Seg Neutrophils # 6.9 K/mm3 (1.8-7.7) 03/21/21 09:34 PT 14.1 Sec. (12.2-14.9) 03/21/21 09:34 INR 1.04 (0.87-1.13) 03/21/21 09:34 APTT 21.4 Sec. (24.2-36.6) L 03/21/21 09:34 Sodium 142 mmol/L (137-145) 03/22/21 04:59 Potassium 3.9 mmol/L (3.6-5.0) D 03/22/21 04:59 Chloride 105.3 mmol/L (98-107) 03/22/21 04:59 Carbon Dioxide 21 mmol/L (22-30) L 03/22/21 04:59 Anion Gap 20 mmol/L 03/22/21 04:59 BUN 20 mg/dL (7-17) H 03/22/21 04:59 Creatinine 1.1 mg/dL (0.6-1.2) 03/22/21 04:59 Estimated GFR 50 ml/min 03/22/21 04:59 BUN/Creatinine Ratio 18 % 03/22/21 04:59 Glucose 91 mg/dL (65-100) 03/22/21 04:59 Calcium 10.6 mg/dL (8.4-10.2) H 03/22/21 04:59 Total Bilirubin 0.90 mg/dL (0.1-1.2) 03/22/21 04:59 Direct Bilirubin 0.2 mg/dL (0-0.2) 03/21/21 09:34 Indirect Bilirubin 0.6 mg/dL 03/21/21 09:34 AST 212 units/L (5-40) H 03/22/21 04:59 ALT 178 units/L (7-56) H 03/22/21 04:59 Alkaline Phosphatase 74 units/L (35-129) 03/22/21 04:59 Ammonia 15.0 umol/L (25-60) L 03/21/21 11:22 Total Creatine Kinase 3922 units/L (30-135) H 03/21/21 09:34 Total Protein 8.4 g/dL (6.3-8.2) H 03/22/21 04:59 Albumin 4.7 g/dL (3.9-5) 03/22/21 04:59 Albumin/Globulin Ratio 1.3 % 03/22/21 04:59 Lipase 11 units/L (13-60) L 03/21/21 09:34 TSH 2.010 mlU/mL (0.270-4.200) 03/19/21 23:39 Salicylates < 0.3 mg/dL (2.8-20.0) L 03/19/21 23:39 Acetaminophen 5.0 ug/mL (10.0-30.0) L 03/19/21 23:39 [place] 0.1 mmol/L (0.0-1.2) 03/21/21 09:34 Plasma/Serum Alcohol < 0.01 % (0-0.07) 03/19/21 23:39 Coronavirus (PCR) Negative (Negative) 03/20/21 08:27 Active Medications - Current Medications Current Medications: Generic Name Dose Route Start Last Admin Trade Name Freq PRN Reason Stop Dose Admin Acetaminophen 650 mg 03/21/21 13:13 Acetaminophen 325 Mg Tab PO Q4H PRN Pain MILD(1-3)/Fever >100.5/MONET Albuterol 2.5 mg 03/21/21 13:13 Albuterol 2.5 Mg/3 Ml Nebu IH Q4HRT PRN Shortness Of Breath Cetirizine HCl 10 mg 03/22/21 10:00 Cetirizine 10 Mg Tab PO DAILY MINAL Cholecalciferol 5,000 unit 03/22/21 10:00 Cholecalciferol (Vit D3) 5,000 Unit Tab PO QDAY MINAL Divalproex Sodium 125 mg 03/21/21 11:00 03/21/21 23:[address] 125 Mg Tab PO 125 mg BID MINAL Administration Docusate Sodium 100 mg 03/22/21 10:00 Docusate Sodium 100 Mg Cap PO DAILY MINAL Hydromorphone HCl 0.5 mg 03/21/21 13:13 Hydromorphone 1 Mg/1 Ml Inj IV Q12H PRN Pain , Severe (7-10) Hydroxyzine Pamoate 25 mg 03/20/21 11:00 03/21/21 23:15 Hydroxyzine Pamoate 25 Mg Cap PO 25 mg BID MINAL Administration Sodium Chloride 1,000 mls @ 150 mls/hr 03/21/21 14:00 Nacl 0.45% 1000 Ml IV DIRECT MINAL Sodium Chloride 3,000 mls @ 999 mls/hr 03/21/21 14:00 Nacl 0.45% IV DIRECT MINAL Levothyroxine Sodium 125 mcg 03/22/21 06:00 Levothyroxine 125 Mcg Tab PO 0600 [facility] Miscellaneous Medication 5 mg 03/21/21 22:00 Trifluoperazine Hcl [Trifluoperazine Hcl] PO QHS MINAL Ondansetron HCl 4 mg 03/21/21 13:13 Ondansetron 4 Mg/2 Ml Inj IV Q8H PRN Nausea And Vomiting Oxybutynin Chloride 5 mg 03/21/21 22:00 03/21/21 23:14 Oxybutynin 5 Mg Tab PO 5 mg BID MINAL Administration Oxycodone/Acetaminophen 1 tab 03/21/21 13:13 Oxycodone /Acetaminophen 5-325mg Tab PO Q12H PRN Pain, Moderate (4-6) Pramipexole Dihydrochloride 0.125 mg 03/21/21 22:00 03/21/21 23:16 Pramipexole 0.125 Mg Tab PO 0.125 mg QHS MINAL Administration Propranolol HCl 10 mg 03/22/21 10:00 Propranolol 10 Mg Tab PO DAILY MINAL Risperidone 0.5 mg 03/21/21 22:00 03/21/21 23:20 Risperidone 0.25 Mg Tab PO 0.5 mg BID MINAL Administration Sodium Chloride 10 ml 03/21/21 22:00 03/21/21 23:17 Sodium Chloride 0.9% 10 Ml Flush Syringe IV Not Given BID MINAL Sodium Chloride 10 ml 03/21/21 13:13 Sodium Chloride 0.9% 10 Ml Flush Syringe IV PRN PRN LINE FLUSH Trazodone HCl 50 mg 03/20/21 22:00 03/21/21 23:20 Trazodone 50 Mg Tab PO 50 mg QHS MINAL Administration Ziprasidone 10 mg 03/20/21 10:43 03/21/21 01:44 Ziprasidone Mesylate 20 Mg Vial IM 10 mg Q4H PRN Administration Agitation
--- NOTE | 2021-03-22 09:47 | Progress Note ---
Subjective - Reason for Consult Consult date: 03/22/21 Reason for consult: psychosis - Chief Complaint Chief complaint: The patient was seen today, she has disorganized thoughts and behavior. She is marching in place. She is talking and laughing out loud to herself. She tells me she is "pretty good" when asking. She then says "I'm marvelous." The patient says she slept "wonderfully." She is grinning. I ask the patient if she know where she is, she started talking about "kids who made a left turn to get here." MENTAL STATUS EXAMINATION Unable to assess Assessment and Plan (1)Acute Psychosis Current Visit: Yes Status: Acute Treatment Plan 1013 Geodon 10mg IM q4h prn agitation Increased Risperidone 1mg po BID Increased Depakote DR 250mg po BID Sitter: Per primary Medical: Per primary Disposition: Recommend acute psychiatric inpatient treatment Will follow. Thanks Case staffed with Dr. Eugene Mental Status Exam - Vital signs Last Vital Signs Temp 97.9 F 03/22/21 09:00 Pulse 86 03/22/21 09:00 Resp 18 03/22/21 09:00 BP 121/69 03/22/21 09:00 Pulse Ox 100 03/22/21 09:00
[2021-03-22] MEDS ORDERED: DOCUSATE SODIUM 100 MG PO SCH (10:00)
[2021-03-22] MEDS ORDERED: [UNRECOGNIZED DRUG - OTHER] PO SCH (10:00)
[2021-03-22] MEDS ORDERED: CETIRIZINE 10 MG TAB PO SCH (10:00)
[2021-03-22] MEDS ORDERED: CHOLECALCIFEROL (VIT D3) 5,000 UNIT TAB PO SCH (10:00)
[2021-03-22] MEDS ORDERED: DOCUSATE SODIUM 100 MG CAP PO SCH (10:00)
[2021-03-22] MEDS ORDERED: LORATADINE PO SCH (10:00)
[2021-03-22] MEDS ORDERED: PROPRANOLOL 10 MG TAB PO SCH (10:00)
[2021-03-22] MEDS ORDERED: CHOLECALCIFEROL 5000 UNIT PO SCH (10:00)
[2021-03-22 10:13] LABS: Bilirubin,Urine NEG (Negative); Blood,Urine NEG (Negative); Color,Urine Yellow (Yellow); Hyaline Casts,Urine 3 /LPF; Mucus,Urine FEW /HPF; Protein,Urine <15 mg/dL mg/dL (Negative); Urobilinogen,Urine < 2.0 mg/dL (<2.0)
[2021-03-22 10:18] LABS: Amphetamine Screen,Urine Negative; Benzodiazepines Screen,Urine Negative; Cannabinoid Screen,Urine Negative; Cocaine Screen,Urine Negative; Methadone Screen,Urine Negative; Opiate Screen,Urine Negative
[2021-03-22] MEDS: risperiDONE 1 MG TAB PO SCH ×2 (11:00→23:45)
[2021-03-22] MEDS: OXYBUTYNIN 5 MG TAB PO SCH (11:00)
[2021-03-22] MEDS: DIVALPROEX DR 250 MG TAB PO SCH ×2 (11:00→23:45)
[2021-03-22] MEDS: hydrOXYzine PAMOATE 25 MG CAP PO SCH ×2 (11:00→23:46)
[2021-03-22] MEDS: DIVALPROEX DR 125 MG TAB PO SCH (13:18)
[2021-03-22] MEDS: TRIFLUOPERAZINE HCL 5 MG PO SCH ×2 (13:18→23:46)
[2021-03-22] MEDS: ZIPRASIDONE MESYLATE 20 MG VIAL IM PRN (15:30)
[2021-03-22] MEDS: traZODone 50 MG TAB PO SCH (23:45)
[2021-03-23] MEDS: OXYBUTYNIN 5 MG TAB PO SCH (01:04)
[2021-03-23] MEDS: PRAMIPEXOLE 0.125 MG TAB PO SCH (01:04)
[2021-03-23 03:15] LABS: Basophils % (Auto) 0.3 % (0.0-1.8); Eosinophils # (Auto) 0.2 K/mm3 (0.0-0.4); Eosinophils % (Auto) 2.1 % (0.0-4.3); Hematocrit 38.3 % (30.3-42.9); Lymphocytes # (Auto) 1.3 K/mm3 (1.2-5.4); Lymphocytes % (Auto) 15.6 % (13.4-35.0); Mean Corpuscular HGB Conc 34 % (30-34); Mean Corpuscular Volume 98 fl (79-97); Monocytes # (Auto) 0.9 K/mm3 (0.0-0.8); Platelet Count 251 K/mm3 (140-440); Red Blood Count 3.89 M/mm3 (3.65-5.03); Red Cell Distribution Width 13.4 % (13.2-15.2)
[2021-03-23 03:19] LABS: BUN/Creatinine Ratio 19; Blood Urea Nitrogen 17 mg/dL (7-17); Hemolysis Index 23
[2021-03-23 04:14] VITALS: BP 120/64
--- NOTE | 2021-03-23 08:16 | Discharge Summary ---
Providers - Providers Date of Admission: 03/21/21 13:13 Date of discharge: 03/23/21 Attending physician: FRIDA RIVERA 03/21/21 13:29 Consult to Mental Health [CONS] Routine Reason For Exam: psychosis Primary care physician: MORTARMAN Hospitalization Reason for admission: Rhabdomyolysis, acute psychosis Condition: Stable Hospital course: 65 YO Female with Hypothyroidism, GERD, HTN, Seasonal Allergies presents to ED for evaluation. Patient has diminished cognition and is unable to provide history at the time of ER evaluation by Dr. Still. Patient history taken from each to my staff, ED staff. As per staff the patient was transported to [facility] via EMS after being found naked in the street. Patient seen and evaluated in the emergency department. All lab and imaging studies reviewed. [address] Patient found to have rhabdomyolysis. Patient is unable to tolerate oral rehydration therapy and found to have resultant electrolyte abnormality. Patient admitted to medical floor and treated with IV fluid resuscitation therapy, IV bicarbonate therapy and supportive care. Repeat BMP showed resolution of the metabolic acidosis and electrolyte derangements. Creatinine kinase decreased significantly. Patient is medically stable for discharge to inpatient psych unit. Dedicated discharge time 35 minutes. Disposition: [id number] PSY HOSP/PSY UNIT Final Discharge Diagnosis (Prints w/discharge instructions): Rhabdomyolysis, metabolic acidosis, acute psychosis Core Measure Documentation - Palliative Care Palliative Care/ Comfort Measures: Not Applicable - Core Measures Any of the following diagnoses?: none Exam - Constitutional Vitals: Temp Pulse Resp BP Pulse Ox 99.1 F 72 18 120/64 99 03/23/21 04:13 03/23/21 04:13 03/23/21 04:13 03/23/21 04:13 03/23/21 04:13 General appearance: Present: no acute distress, well-nourished - EENT Eyes: Present: PERRL ENT: hearing intact, clear oral mucosa - Neck Neck: Present: supple, normal ROM - Respiratory Respiratory effort: normal Respiratory: bilateral: CTA - Cardiovascular Heart Sounds: Present: S1 & S2. Absent: rub, click - Extremities Extremities: pulses symmetrical, No edema Peripheral Pulses: within normal limits - Abdominal General gastrointestinal: Present: soft, non-tender, non-distended, normal bowel sounds Female genitourinary: Present: normal - Integumentary Integumentary: Present: clear, warm, dry - Musculoskeletal Musculoskeletal: gait normal, strength equal bilaterally - Psychiatric Psychiatric: appropriate mood/affect, intact judgment & insight - Neurologic Neurologic: CNII-XII intact, moves all extremities Plan Activity: advance as tolerated Weight Bearing Status: Weight Bear as Tolerated Follow up with: PRIMARY CARE, [Primary Care Provider] - 3-5 Days
== END 2021-03-23 07:45 | DRG 557 ==
LOC: ED 21:36 → EEVIPCON 21:36 → 3A 03-21 13:13 → 4A 03-21 20:09 → 3A 03-22 00:34
PROVIDERS: ADMIT Internal Medicine; ATTEND Hospitalist
DX: M62.82 Rhabdomyolysis (principal); N17.0 Acute kidney failure with tubular necrosis; F29 Unspecified psychosis not due to a substance or known physiological condition; Z20.822 Contact with and (suspected) exposure to COVID-19; Z88.6 Allergy status to analgesic agent; Z88.0 Allergy status to penicillin; M19.90 Unspecified osteoarthritis, unspecified site; E86.0 Dehydration; E03.9 Hypothyroidism, unspecified; Z82.49 Family history of ischemic heart disease and other diseases of the circulatory system
CPT/HCPCS: 36415; 70450; 80048; 80053; 80076; 80178; 80307; 80320; 81001; 82140; 82550; 83690; 84443; 85025; 85610; 85730; G0378; G0480; J3486; J7030; Q0177; U0003